=== PATIENT | male | born 1990 | race Caucasian/White ===

== ENCOUNTER 2018-03-18 13:50 | Emergency (ER) | payer OTHER ==
[2018-03-18 14:14] VITALS: BP 156/83
[2018-03-18] MEDS ORDERED: ACETAMINOPHEN 325 MG TAB PO ONE (15:28)
[2018-03-18] MEDS ORDERED: DIAZEPAM 5 MG TAB PO ONE (15:28)
--- NOTE | 2018-03-18 15:36 | EDPHY ---
General Time Seen by Provider: 03/18/18 15:28 Narrative: CHIEF COMPLAINT: Back pain HISTORY OF PRESENT ILLNESS: Patient presents by private vehicle with complaints of severe back pain. 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 It is rated as severe. It has been constant duration. It is worse with palpation and movement. Minimal improvement rest. He has no radicular pain. No numbness, tingling or weakness. He has no incontinence of bowel or bladder. He had a similar episode of this several years ago that resolved with muscle relaxants and without further intervention. He has no other associated complaints or modifying factors. REVIEW OF SYSTEMS: 10 systems were reviewed and negative with the exception of the elements mentioned in the history of present illness. PCP: None locally. SPECIALISTS: None PAST MEDICAL HISTORY: Back injury with sciatica PAST SURGICAL HISTORY: vasectomy SOCIAL HISTORY: Nonsmoker. Lives independently with significant other. Active in the [employer]. FAMILY HISTORY: Noncontributory EXAMINATION: Vitals: Triage VS reviewed General Appearance: Alert, no distress. Conversing appropriately. Head: normocephalic, atraumatic Neck: Normal inspection, supple, non-tender. No meningismus Respiratory: Lungs are clear to auscultation. No wheezing rhonchi or crackles. Cardiovascular: Regular rate and rhythm. No murmur. Good signs of perfusion distally. Back: No crepitus, step-off or deformity. There is lumbar midline tenderness and paraspinal tenderness. No thoracic tenderness. Neurological: Light sensory symmetric in the upper lower extremities. A&O, nonfocal, normal gait. Strength is symmetric upper lower extremities. Patellar reflexes are symmetric 2+. Skin: Warm and dry, no rash Extremities: Nontender, no pedal edema Psychiatric: Mood and affect normal DIFFERENTIAL DIAGNOSES: Including but not limited to low back strain, sprain disc bulge, disc herniation , vertebral fracture, spondylolisthesis, acute cord compression, cauda equina MDM: 3:25 p.m. Acute low back strain with midline tenderness. No radicular symptoms or evidence of acute cord compression or cauda equina. He did ambulate into the emergency department. He has symmetric patellar pulses. Sensory is symmetric. I have ordered x-ray of the lumbar spine with symptomatic medications. He is in no acute distress. 4:40 p.m. X-ray negative for any acute findings. Patient re-evaluated. He is feeling significantly better after Valium. He is ambulatory without difficulty. We discussed discharge home with short course of symptomatic medications. We discussed rest and light activity. We discussed follow up with back specialist for definitive care. We discussed ED precautions for any numbness, tingling, weakness, incontinence of bowel or bladder or intractable pain. He is comfortable this plan and discharged home stable condition. SUPERVISION: This patient was independently evaluated without direct involvement of or examination by the attending physician. CONSULTATION: None - Diagnostics Imaging Results: Imaging Impressions Lumbar Spine X-Ray 03/18/18 15:40 Impression: L5-S1 degenerative disk disease; otherwise negative lumbar spine radiographs. - History Smoking Status: Former smoker - Objective Vital Signs: Initial Vital Signs Temperature (C) 97.9 F 03/18/18 14:11 Heart Rate 65 03/18/18 14:11 Respiratory Rate 16 03/18/18 14:11 Blood Pressure 156/83 H 03/18/18 14:11 O2 Sat (%) 96 03/18/18 14:11 O2 Delivery Mode Room Air Allergies/Adverse Reactions: No Known Allergies Allergy (Unverified 03/18/18 14:14) Home Medications: Medication Instructions Recorded Diazepam [Valium 5 MG (*)] 5 mg PO TID PRN #15 tab 03/18/18 Ibuprofen 03/18/18 Medications Given: Discontinued Medications Acetaminophen (Tylenol) 650 mg PO EDNOW ONE Stop: 03/18/18 15:29 Last Admin: 03/18/18 15:43 Dose: 650 mg Diazepam (Valium) 10 mg PO EDNOW ONE Stop: 03/18/18 15:29 Last Admin: 03/18/18 15:43 Dose: 10 mg Departure - Departure Disposition: Home, Routine, Self-Care Clinical Impression: Low back strain Qualifiers: Encounter type: initial encounter Qualified Code(s): S39.012A - Strain of muscle, fascia and tendon of lower back, initial encounter Acute low back pain Qualifiers: Back pain laterality: bilateral Sciatica presence: without sciatica Qualified Code(s): M54.5 - Low back pain Condition: Good Instructions: Low Back Strain (ED), Back Pain (ED), Lower Back Exercises (ED) Additional Instructions: 1. Valium as prescribed as needed. 2. Ibuprofen [id number], 600 mg every 6-8 hours 3. Follow up with dairy specialist for definitive care 4. Strict ED precautions for any worsening pain, numbness, tingling, weakness, incontinence of bowel or bladder Referrals: [facility] [Outside] - As per Instructions Dipesh Sal MD [Medical Doctor] - As per Instructions Physician,Emergency Dept, [Medical Doctor] - As per Instructions (As discussed as needed) Prescriptions: Diazepam [Valium 5 MG (*)] 5 mg PO TID PRN #15 tab PRN Reason: Spasms
== END 2018-03-18 17:15 | disposition home or self-care (01) ==
DX: S39.012A Strain of muscle, fascia and tendon of lower back, initial encounter (principal); M54.5 Low back pain; G89.11 Acute pain due to trauma; X50.0XXA Overexertion from strenuous movement or load, initial encounter; Y92.9 Unspecified place or not applicable; Y93.B9 Activity, other involving muscle strengthening exercises; Y99.9 Unspecified external cause status